=== PATIENT | male | born 1955 | race Caucasian/White ===

== ENCOUNTER 2018-10-06 17:06 | Emergency (ER) | payer OTHER ==
--- NOTE | 2018-10-06 17:19 | UC ---
Skin Complaint HPI - HPI Summary HPI Summary: Patient is a 63 year old male , who present today with left forearm redness that he noticed yesterday. He burnt his hand in that area last week and it was healing well until yesterday when he was outdoors and saw a blister and redness and it has got worse since, Started noticing some discharge, no pus though. he had it covered but not sure if some dirt got to it . He used peroxide. Not much pain. Wrist movement is full. Denies any fever, chills. He has h/o abscesson right hand - was diagnosed with MRSA His last tetanus was 2 to 3 yrs ago. - History of Current Complaint Time Seen by Provider: 10/06/18 17:13 Stated Complaint: L ARM INFECTION Hx Obtained From: Patient - Allergy/Home Medications Allergies/Adverse Reactions: Allergies Allergy/AdvReac Type Severity Reaction Status Date / Time Sulfa (Sulfonamide Allergy Unknown RASH ALL Verified 10/06/18 17:27 Antibiotics) OVER BODY Home Medications: Home Medications Aspirin 81 mg CHEW TAB* [Aspirin Low Dose TAB*] 81 mg PO DAILY 10/06/18 [ History Confirmed 10/06/18] PMH/Surg Hx/FS Hx/Imm Hx - Additional Past Medical History Additional PMH: Past Medical History:DM- dietary controlled, anxiety Past Surgical history: bladder repair, hernia Family history: non contributory Social history; former smoker, no alcohol use , no substance abuse. Previously Healthy: Yes - Family History Known Family History: Positive: Non-Contributory Review of Systems All Other Systems Reviewed And Are Negative: Yes Constitutional: Positive: Negative Skin: Positive: Other - blister and redness on left forearm. Eyes: Positive: Negative ENT: Positive: Negative Respiratory: Positive: Negative Cardiovascular: Positive: Negative Gastrointestinal: Positive: Negative Genitourinary: Positive: Negative Motor: Positive: Negative Neurovascular: Positive: Negative Musculoskeletal: Positive: Negative Neurological: Positive: Negative Psychological: Positive: Negative Is Patient Immunocompromised?: No Physical Exam - Summary Physical Exam Summary: Vital Signs Reviewed: Yes A+Ox3, no distress Eyes: Conjunctiva Clear ENT: Hearing grossly normal neck: supple Respiratory: Positive: No respiratory distress, No accessory muscle use Cardiovascular: skin color reflect adequate perfusion Musculoskeletal Exam: DUBON x 4 without difficulty Neurological: Positive: Alert, ambulatory without difficulty Psychological: Positive: Normal Response To Family Skin: blister measuring 4 cm x 1 cm, with surrounding and redness on left distal volar aspect of forearm. clear discharge, no pus noted. no abscess noted. Wrist movement is full and pain free. Triage Information Reviewed: Yes Vital Signs Reviewed: Yes Course/Dx - Course Course Of Treatment: During the visit today, burn site with infection. we obtained wound culture and advised him that someone will call him if antibiotic needs to be changed based on results. he was given 1st dose of clindamycin and his wound dressed. I will prescribe the medication to the pharmacy . Patient expressed understanding . - Diagnoses Provider Diagnosis: Cellulitis Discharge - Sign-Out/Discharge Documenting (check all that apply): Patient Departure All imaging exams completed and their final reports reviewed: No Studies - Discharge Plan Condition: Stable Disposition: HOME Prescriptions: Clindamycin Cap(NF) [Clindamycin Cap 300 mg Cap(NF)] 300 mg PO Q6H 10 Days #40 cap Patient Education Materials: Cellulitis (ED) Referrals: Navdeep Guevara MD [Primary Care Provider] - 1 Week Additional Instructions: Start taking antibiotics. It has been prescribed to the pharmacy . Wound cultures obtained. Someone will call if antibiotics need to be changed Follow up with your primary care doctor in 1 week Patients blood pressure slightly high in Urgent care today , plan follow up with PCP for better control in 1 month Return to Urgent care / ER if symptoms get worse. - Billing Disposition and Condition Condition: STABLE Disposition: Home
[2018-10-06 17:39] VITALS: BP 137/77
[2018-10-06] MEDS ORDERED: Clindamycin CAP* 150 MG PO ONE (17:47)
--- NOTE | 2018-10-08 12:15 | UC ---
- Progress Note Progress Note: Reviewed [facility] [place]06[place]. Wound cx pending. No change at this time , pending cx and clinical progress. Course/Dx - Diagnoses Provider Diagnoses: Cellulitis Discharge - Sign-Out/Discharge Documenting (check all that apply): Patient Departure All imaging exams completed and their final reports reviewed: No Studies - Discharge Plan Condition: Stable Disposition: HOME Prescriptions: Clindamycin Cap(NF) [Clindamycin Cap 300 mg Cap(NF)] 300 mg PO Q6H 10 Days #40 cap Patient Education Materials: Cellulitis (ED) Referrals: Navdeep Guevara MD [Primary Care Provider] - 1 Week Additional Instructions: Start taking antibiotics. It has been prescribed to the pharmacy . Wound cultures obtained. Someone will call if antibiotics need to be changed Follow up with your primary care doctor in 1 week Patients blood pressure slightly high in Urgent care today , plan follow up with PCP for better control in 1 month Return to Urgent care / ER if symptoms get worse. - Billing Disposition and Condition Condition: STABLE Disposition: Home
== END 2018-10-06 18:06 | disposition home or self-care (01) ==
LOC: UCCORT 17:06
DX: L03.114 Cellulitis of left upper limb (principal); Z86.14 Personal history of Methicillin resistant Staphylococcus aureus infection; Z88.1 Allergy status to other antibiotic agents; Z87.891 Personal history of nicotine dependence
CPT/HCPCS: 87070; 87205; 99202; A9270-GY; G0463